=== PATIENT | female | born 1990 | race Caucasian/White ===

== ENCOUNTER 2017-08-14 17:21 | Emergency (ER) | payer MEDICAID ==
[~2017-08-14] VITALS: Ht 152.4 cm; Wt 54.4 kg
[~2017-08-14 17:21] MED LIST: BACTRIM DS TAB1 EACH PO; BACTROBAN22 GM TP; CIPRO500 MG PO; CIPROFLOXACIN500 M1 PO; FIORICET 50-321 EACH PO; HYDROCODONE-AP1 EAC6 PO; IBUPROFEN 800800 M1 PO; KEFLEX500 MG PO; MONONESSA1 EACH; NAPROSYN500 MG PO; NOHOMEMEDICATIONS; NORCO 5-325 TA1 EACH PO; ONDANSETRON HCL4 M2 PO; ULTRAM 50MG TAB50 MG PO; VICODIN 5-5001 EACH PO; ZOFRAN ODT4 MG PO; ZOFRAN4 MG PO
[2017-08-14] MEDS ORDERED: PROBIOTIC1 EAC1 PO (17:42)
[2017-08-14 18:32] LABS: ABSOLUTE LYMPHOCYTES 1.8 thou/uL (0.8-5.3); ABSOLUTE MONOCYTES 0.7 thou/uL (0.0-1.2); ABSOLUTE NEUTROPHILS 8.5 thou/uL (1.6-8.1); BASOPHILS 0.4 %; EOSINOPHILS 0.3 %; HEMATOCRIT 42.7 % (37.0-47.0); HEMOGLOBIN 14.1 gm/dL (12.0-15.0); LYMPHOCYTES 16.2 %; MCH 30.4 pg (26.0-34.0); MONOCYTES 6.3 %; MPV 9.5 fl. (7.2-11.1); NUCLEATED RBCS 0 /100WBC; PLATELET COUNT* 201 thou/uL (150-400); POLYS 76.8 %; RBC 4.64 mil/uL (4.20-5.00)
[2017-08-14 18:39] LABS: CALCIUM 9.3 mg/dL (8.5-10.1); CREATININE 0.7 mg/dL (0.6-1.3); POTASSIUM 3.6 mmol/L (3.5-5.1)
[2017-08-14 18:44] LABS: ALBUMIN 4.4 g/dL (3.4-5.0); TOTAL BILIRUBIN 0.3 mg/dL (<0.1-1.0)
[2017-08-14 18:58] LABS: URINE BILIRUBIN NEGATIVE (Negative); URINE BLOOD NEGATIVE (Negative); URINE CLARITY CLEAR; URINE COLOR YELLOW; URINE GLUCOSE-RANDOM NEGATIVE (Negative); URINE KETONES 1+ (Negative); URINE LEUKOCYTES-REFLEX NEGATIVE (Negative); URINE NITRITE-REFLEX NEGATIVE (Negative); URINE PROTEIN NEGATIVE (Negative); URINE UROBILINOGEN 0.2 E.U./dl (0.2-1.0)
[2017-08-14 19:12] LABS: AMP/METHAMP Negative (Negative); BARBITURATES Negative (Negative); BENZODIAZEPINES Negative (Negative); COCAINE Negative (Negative); OPIATES Negative (Negative); PCP Negative (Negative); THC Negative (Negative)
[2017-08-14 20:06] LABS: METHADONE Negative (Negative)
[2017-08-14] MEDS ORDERED: PRENATAL PO (20:19)
[2017-08-14 20:35] VITALS: BP 115/70
== END 2017-08-14 20:37 | disposition home or self-care (01) ==
LOC: M.ERS 17:21
PROVIDERS: Physician Assistant
DX: O26.891 Other specified pregnancy related conditions, first trimester (principal); R10.84 Generalized abdominal pain; J45.909 Unspecified asthma, uncomplicated; F17.210 Nicotine dependence, cigarettes, uncomplicated; Z90.49 Acquired absence of other specified parts of digestive tract; Z86.2 Personal history of diseases of the blood and blood-forming organs and certain disorders involving the immune mechanism; Z88.0 Allergy status to penicillin; Z88.6 Allergy status to analgesic agent

== ENCOUNTER 2018-06-10 08:08 | Emergency (ER) | payer OTHER ==
[~2018-06-10] VITALS: Ht 152.4 cm; Wt 60.8 kg
[~2018-06-10 08:08] MED LIST changes: +PRENATAL PO; +PROBIOTIC1 EAC1 PO
[2018-06-10] MEDS ORDERED: UNICOMPLEX M TA1 TA1 PO (08:23)
[2018-06-10] MEDS ORDERED: JUNEL FE 1-201 EACH PO (08:23)
[2018-06-10 08:33] LABS: ABSOLUTE BASOPHILS 0.1 thou/uL (0.0-0.2); ABSOLUTE EOSINOPHILS 0.1 thou/uL (0.0-0.7); ABSOLUTE LYMPHOCYTES 1.4 thou/uL (0.8-5.3); ABSOLUTE MONOCYTES 0.5 thou/uL (0.0-1.2); ABSOLUTE NEUTROPHILS 9.9 thou/uL (1.6-8.1); BASOPHILS 0.5 %; EOSINOPHILS 0.8 %; HEMATOCRIT 39.1 % (37.0-47.0); HEMOGLOBIN 12.8 gm/dL (12.0-15.0); LYMPHOCYTES 11.7 %; MCH 28.8 pg (26.0-34.0); MCHC 32.7 g/dL (28.0-37.0); MONOCYTES 4.3 %; MPV 9.2 fl. (7.2-11.1); NUCLEATED RBCS 0 /100WBC; PLATELET COUNT* 176 thou/uL (150-400); POLYS 82.7 %; RBC 4.45 mil/uL (4.20-5.00); RDW-CV 14.8 % (10.5-14.5); WBC 11.9 thou/uL (4.0-11.0)
[2018-06-10 08:41] LABS: CALCIUM 8.3 mg/dL (8.5-10.1); CREATININE 0.8 mg/dL (0.6-1.3); POTASSIUM 3.9 mmol/L (3.5-5.1)
[2018-06-10 08:45] LABS: ALBUMIN 3.5 g/dL (3.4-5.0); TOTAL BILIRUBIN 0.2 mg/dL (<0.1-1.0); TOTAL PROTEIN 6.9 g/dL (6.4-8.2)
[2018-06-10 09:10] LABS: URINE BILIRUBIN NEGATIVE (Negative); URINE BLOOD NEGATIVE (Negative); URINE CLARITY CLEAR; URINE COLOR YELLOW; URINE GLUCOSE-RANDOM NEGATIVE (Negative); URINE KETONES NEGATIVE (Negative); URINE LEUKOCYTES-REFLEX NEGATIVE (Negative); URINE NITRITE-REFLEX NEGATIVE (Negative); URINE PROTEIN NEGATIVE (Negative); URINE SPECIFIC GRAVITY >= 1.030 (1.005-1.030); URINE UROBILINOGEN 0.2 E.U./dl (0.2-1.0)
[2018-06-10 09:52] VITALS: BP 130/76
== END 2018-06-10 09:54 | disposition home or self-care (01) ==
LOC: M.ERS 08:08
PROVIDERS: Family Medicine
DX: R10.84 Generalized abdominal pain (principal); J45.909 Unspecified asthma, uncomplicated; D64.9 Anemia, unspecified; Z90.49 Acquired absence of other specified parts of digestive tract; F17.210 Nicotine dependence, cigarettes, uncomplicated; Z88.0 Allergy status to penicillin; Z88.8 Allergy status to other drugs, medicaments and biological substances

== ENCOUNTER 2019-06-18 00:05 | Emergency (ER) | payer OTHER, MEDICAID ==
[~2019-06-18] VITALS: Ht 152.4 cm; Wt 54.4 kg
[~2019-06-18 00:05] MED LIST changes: +JUNEL FE 1-201 EACH PO; +UNICOMPLEX M TA1 TA1 PO
[2019-06-18] MEDS ORDERED: ZYRTEC10 M5 PO (00:16)
[2019-06-18] MEDS ORDERED: SUPER THERAVIT1 EACH PO (00:17)
[2019-06-18 00:46] LABS: CALCIUM 8.6 mg/dL (8.5-10.1); CREATININE 0.7 mg/dL (0.6-1.3); POTASSIUM 3.7 mmol/L (3.5-5.1)
[2019-06-18 02:07] VITALS: BP 102/62
== END 2019-06-18 02:09 | disposition home or self-care (01) ==
LOC: M.ERS 00:05
PROVIDERS: Emergency Medicine Emergency Medical Services
DX: G43.909 Migraine, unspecified, not intractable, without status migrainosus (principal); R11.2 Nausea with vomiting, unspecified; J45.909 Unspecified asthma, uncomplicated; N80.9 Endometriosis, unspecified; F17.210 Nicotine dependence, cigarettes, uncomplicated; Z88.0 Allergy status to penicillin; Z88.6 Allergy status to analgesic agent; Z86.2 Personal history of diseases of the blood and blood-forming organs and certain disorders involving the immune mechanism; Z90.49 Acquired absence of other specified parts of digestive tract